=== PATIENT | male | born 1975 | race Caucasian/White ===

== ENCOUNTER 2016-09-29 17:41 | Emergency (ER) | payer BC ==
[~2016-09-29] VITALS: Ht 177.8 cm; Wt 68.0 kg
[2016-09-29] MEDS ORDERED: PROSCAR5 MG ORAL (17:48)
[2016-09-29 17:54] VITALS: BP 117/72
--- NOTE | 2016-09-29 18:06 | Emergency Room Report ---
History of Present Illness General Chief Complaint: Abdominal Pain Source: Patient Present Illness HPI 41-year-old male presents emergency department complaining of vomiting and diarrhea since yesterday afternoon. Patient reports intermittent fevers at home denies blood in the vomit or stool denies recent travel or ill contacts with similar symptoms. Patient reports intermittent cramping abdominal pain just prior to episodes of vomiting or diarrhea which is completely relieved afterward. Patient denies past medical history denies taking medications other than finasteride for hair loss. The patient denies abdominal tenderness. He should estimates approximately 7 episodes of vomiting and approximately 30 episodes of loose stool. Denies recent antibiotic use. Denies CP, Palpitations , LOC, AMS, dizziness, Changes in Vision, Sensation, paresthesias, or a sudden severe headache. Allergies: Coded Allergies: No Known Allergies (Unverified , 09/29/16) Patient History Past Medical History: see triage record Past Surgical History: none Pertinent Family History: none Reviewed Nursing Documentation: PMH: Agreed, PSxH: Agreed Nursing Documentation-PMH Past Medical History: No Stated History Review of Systems All Other Systems: negative except mentioned in HPI Physical Exam Vital Signs Date Time Temp Pulse Resp B/P Pulse Ox O2 Delivery O2 Flow Rate FiO2 09/29/16 17:44 98.6 85 16 117/72 97 Room Air Sp02 EP Interpretation: reviewed, normal General Appearance: no apparent distress, alert, GCS 15, non-toxic Head: normocephalic, atraumatic Eyes: bilateral eye PERRL, bilateral eye normal inspection ENT: hearing grossly normal, normal pharynx, no angioedema, normal voice Neck: full range of motion, supple/symm/no masses Respiratory: lungs clear, normal breath sounds, speaking full sentences Cardiovascular #1: regular rate, rhythm, no edema Gastrointestinal: normal bowel sounds, non tender, soft, no guarding, no rebound, other - Negative [place] signs, Negative MacBurney's sign, Negative Rosvigns Sign, Negative Psoas, No Peritoneal signs. Rectal: deferred Musculoskeletal: back normal, gait/station normal, normal range of motion, non- tender Neurologic: alert, oriented x3, responsive, motor strength/tone normal, sensory intact, speech normal Psychiatric: judgement/insight normal, memory normal, mood/affect normal Skin: normal color, no rash, warm/dry, well hydrated Medical Decision Making PA Attestation Dr. byrne is my supervising Physician whom patient management has been discussed with. Diagnostic Impression: Primary Impression: Gastroenteritis ER Course 41-year-old male presents emergency department complaining of vomiting and diarrhea since yesterday afternoon. Patient reports intermittent fevers at home denies blood in the vomit or stool denies recent travel or ill contacts with similar symptoms. Patient reports intermittent cramping abdominal pain just prior to episodes of vomiting or diarrhea which is completely relieved afterward. Patient denies past medical history denies taking medications other than finasteride for hair loss. The patient denies abdominal tenderness. He should estimates approximately 7 episodes of vomiting and approximately 30 episodes of loose stool. Denies recent antibiotic use. Denies CP, Palpitations , LOC, AMS, dizziness, Changes in Vision, Sensation, paresthesias, or a sudden severe headache. Ddx considered but are not limited to GE, colitis, acute appendicitis, SBO. Vital signs: pt. is afebrile, H&PE are most consistent with GE, abdomen is soft, non-guarding, non-tender no suspicion of acute abdomen at this time. ORDERS: none required at this time, the diagnosis is clinical ED INTERVENTIONS: -500 NS iv hydration, -4mg IVP zofran for nausea. -20mg Bentyl PO -15mg Toradol IV - Pt able to tolerate oral fluid challenge. DISCHARGE: At this time pt. is stable for d/c to home. Will provide printed patient care instructions, and any necessary prescriptions. Care plan and follow up instructions have been discussed with the patient prior to discharge. Last Vital Signs Date Time Temp Pulse Resp B/P Pulse Ox O2 Delivery O2 Flow Rate FiO2 09/29/16 17:54 98.6 16 117/72 97 Room Air 09/29/16 17:44 85 Disposition: HOME, SELF-CARE Condition: Stable Scripts Dicyclomine Hcl* (BENTYL*) 10 Mg Capsule 10 MG ORAL FOUR TIMES A DAY for 3 Days, #12 CAP Prov: Cassy Vigil P.A. 09/29/16 Ondansetron Odt* (ZOFRAN ODT*) 4 Mg Tab.rapdis 4 MG ORAL Q6H Y for Nausea & Vomiting, #20 TAB Prov: Cassy Vigil P.A. 09/29/16 Patient Instructions: Viral Gastroenteritis, Adult Additional Instructions: Take medications as directed. Follow up with PCP in 3 days Return sooner to ED if new symptoms occur, or current symptoms become worse. - Please note that this Emergency Department Report was dictated using [employer]data processing clerk technology software, occasionally this can lead to erroneous entry secondary to interpretation by the dictation equipment. Cassy Vigil Sep 29, 2016 18:06
[2016-09-29] MEDS ORDERED: Ketorolac 30mg Inj IV ONE (18:15)
[2016-09-29] MEDS ORDERED: Dicyclomine 10mg Cap ORAL ONE (18:15)
[2016-09-29] MEDS ORDERED: BENTYL10 MG ORAL (19:00)
[2016-09-29] MEDS ORDERED: ZOFRAN ODT4 MG ORAL (19:00)
[2016-09-29 19:20] VITALS: BP 104/60
== END 2016-09-29 19:22 | disposition home or self-care (01) ==
LOC: EMR 18:00
DX: K52.9 Noninfective gastroenteritis and colitis, unspecified (principal)
CPT/HCPCS: 96360; 96374; 96375; 99284; J1885; J2405; J7040

== ENCOUNTER 2016-11-06 04:31 | Emergency (ER) | payer BC ==
[~2016-11-06] VITALS: Ht 177.8 cm; Wt 68.0 kg
[~2016-11-06 04:31] MED LIST: BENTYL10 MG ORAL; PROSCAR5 MG ORAL; ZOFRAN ODT4 MG ORAL
[2016-11-06 04:40] VITALS: BP 148/79
[2016-11-06] MEDS ORDERED: HYDROmorphone 1mg/ml Carpuject IM ONE (05:00)
[2016-11-06] MEDS ORDERED: HYDROCODON-ACE1 EA15 ORAL (05:17)
[2016-11-06] MEDS ORDERED: DIAZEPAM5 MG ORAL (05:17)
--- NOTE | 2016-11-06 05:17 | Emergency Room Report ---
History of Present Illness General Chief Complaint: Lower Back Pain or Injury Source: Patient Present Illness HPI Is a 41-year-old male with back pain before. He presents with chief complaint of lower back pain. Said his back locking up on him. Onset last night. Pain is severe. Worse with movement. Pain radiates down the left side. No incontinence of bowel or urine. No fever. No trauma. No anesthesia. Similar symptom in the past. Ahrj-yqo-ediblsg medication not helping. He had MRI done within the last year. Allergies: Coded Allergies: No Known Allergies (Unverified , 09/29/16) Patient History Past Medical History: see triage record, old chart reviewed Past Surgical History: other Pertinent Family History: none Social History: Denies: smoking Immunizations: other Reviewed Nursing Documentation: PMH: Agreed, PSxH: Agreed Review of Systems Eye: Denies: blurred vision, eye pain ENT: Denies: ear pain, nose congestion, throat swelling Respiratory: Denies: cough, shortness of breath Cardiovascular: Denies: chest pain, palpitations Gastrointestinal: Denies: abdominal pain, diarrhea, nausea, vomiting Musculoskeletal: Reports: back pain, Denies: joint pain Skin: Denies: rash Neurological: Denies: headache, numbness Endocrine: Denies: increased thirst, increased urine Hematologic/Lymphatic: Denies: easy bruising All Other Systems: negative except mentioned in HPI Physical Exam Vital Signs Date Time Temp Pulse Resp B/P Pulse Ox O2 Delivery O2 Flow Rate FiO2 11/06/16 04:38 98.1 73 18 148/79 98 Room Air vitals unremarkable Sp02 EP Interpretation: reviewed, normal General Appearance: well appearing, no apparent distress, alert Head: normocephalic, atraumatic Eyes: bilateral eye EOMI, bilateral eye PERRL ENT: hearing grossly normal, normal pharynx Neck: full range of motion, supple, no meningismus Respiratory: chest non-tender, lungs clear, normal breath sounds Cardiovascular #1: regular rate, rhythm, no murmur Gastrointestinal: normal bowel sounds, non tender, no mass, no organomegaly, no bruit, non-distended Musculoskeletal: other - Back with stiffness and tenderness mostly on the left lower paraspinous area. No step-off. No anesthesia. Psychiatric: mood/affect normal Skin: warm/dry Medical Decision Making Diagnostic Impression: Primary Impression: Low back pain Qualified Codes: M54.42 - Lumbago with sciatica, left side ER Course Patient presents with back pain. no evidence of cauda equina syndrome, spinal epidural abscess or neoplastic process. We'll discharge home. Last Vital Signs Date Time Temp Pulse Resp B/P Pulse Ox O2 Delivery O2 Flow Rate FiO2 11/06/16 04:40 98.0 72 18 148/79 98 Room Air Status: improved Disposition: HOME, SELF-CARE Condition: Stable Scripts Hydrocodone/Acetaminophen 5-325* (HYDROCODONE/ACETAMINOPHEN 5-325*) 1 Each Tablet 1 TAB ORAL Q6H Y for For Pain, #30 TAB 0 Refills Prov: ALYSSA HEARD M.D. 11/06/16 Diazepam* (DIAZEPAM*) 5 Mg Tablet 5 MG ORAL TID Y for For Anxiety, #20 TAB Prov: ALYSSA HEARD M.D. 11/06/16 Referrals: NOT CHOSEN IPA/,REFERRING (PCP) Patient Instructions: Back Pain, Adult Additional Instructions: No heavy lifting. Followup with your Dr. within a week. You may benefit from referral to see a back specialist. Return if symptom worsen. ALYSSA EHARD M.D. Nov 06, 2016 05:17
[2016-11-06 05:25] VITALS: BP 148/79
[2016-11-06] MEDS ORDERED: LORazepam Inj 2mg/ml 1ml IM ONE (05:30)
== END 2016-11-06 05:25 | disposition home or self-care (01) ==
LOC: EMR 04:51
DX: M54.42 Lumbago with sciatica, left side (principal)
CPT/HCPCS: 96372; 99284; J1170

== ENCOUNTER 2018-04-16 09:55 | Emergency (ER) | payer BC ==
[~2018-04-16] VITALS: Ht 177.8 cm; Wt 68.0 kg
[~2018-04-16 09:55] MED LIST changes: +DIAZEPAM5 MG ORAL; +HYDROCODON-ACE1 EA15 ORAL
[2018-04-16 10:05] VITALS: BP 119/60
--- NOTE | 2018-04-16 10:05 | NUR ---
ED Nurse Note: PT WALKED IN TO ER TODAY FROM HOME. AOX4. PT C/O NAUSEA AND ONE EPISODE OF VOMITING X 3 DAYS AGO. PT ALSO C/O ONGOING DIARRHEA X 3 DAYS AGO. LAST BM X THIS AM WHICH PT STATES WAS LIQUID. ACTIVE BOWEL SOUNDS IN ALL QUADRANTS. ABDOMEN DOES NOT APPEAR DISTENDED AND IS NONTENDER TO PALPATION. PT DENIES ANY PAIN AT THIS TIME.
[2018-04-16] MEDS ORDERED: Ketorolac 30mg Inj IV ONE (10:45)
--- NOTE | 2018-04-16 11:24 | Emergency Room Report ---
History of Present Illness General Chief Complaint: Nausea, Vomiting, and Diarrhea Source: Patient Present Illness HPI Patient presents with reports of vomiting and diarrhea Reports that 2 weeks ago he had similar episode [place] that he was getting better from that however earlier today had another episode of diarrhea Patient also feels congested in the nasal area and has a sore throat Denies any chest pain He does have increased nausea He recently returned from [place] about one month ago Denies any rash denies any fevers denies any neck pain or photophobia Allergies: Coded Allergies: No Known Allergies (Unverified , 04/16/18) Patient History Past Medical History: see triage record Pertinent Family History: none Reviewed Nursing Documentation: PMH: Agreed; PSxH: Agreed Nursing Documentation-PMH Past Medical History: No History, Except For Review of Systems All Other Systems: negative except mentioned in HPI Physical Exam Vital Signs Date Time Temp Pulse Resp B/P (MAP) Pulse Ox O2 Delivery O2 Flow Rate FiO2 04/16/18 10:03 99.7 81 16 119/69 98 Room Air Sp02 EP Interpretation: reviewed, normal General Appearance: well appearing, no apparent distress Head: normocephalic, atraumatic Eyes: bilateral eye PERRL, bilateral eye EOMI ENT: hearing grossly normal, TMs + canals normal, uvula midline, pharyngeal erythema Neck: full range of motion, supple, no meningismus, no bony tend Respiratory: lungs clear, normal breath sounds, no rhonchi, no respiratory distress, no retraction, no accessory muscle use Cardiovascular #1: normal peripheral pulses, regular rate, rhythm, no edema, no gallop, no JVD, no murmur Gastrointestinal: normal bowel sounds, non tender, soft, no mass, no organomegaly, non-distended, no guarding, no hernia, no pulsatile mass, no rebound Genitourinary: no CVA tenderness Musculoskeletal: normal inspection Neurologic: oriented x3, responsive, photo optics technician III-XII nml as tested, motor strength/ tone normal, sensory intact Psychiatric: mood/affect normal Skin: normal color, no rash, warm/dry, palpation normal Lymphatic: normal inspection, no adenopathy Medical Decision Making Diagnostic Impression: Primary Impression: Nausea, vomiting, and diarrhea Additional Impression: Pharyngitis ER Course Given the patient's initial complaints of vomiting and diarrhea multiple differentials were entertained He does also not complaining of sore throat Examination revealing erythematous findings No obvious white plaque or pustule Patient's mono differential on CBC is mildly elevated raising question of possible mononucleosis given the erythema however patient is treated with antibiotics Is educated to avoid physical contact and requires close outpatient follow-up Labs Test 04/16/18 10:49 White Blood Count 12.5 K/UL (4.8-10.8) Red Blood Count 4.67 M/UL (4.70-6.10) Hemoglobin 14.2 G/DL (14.2-18.0) Hematocrit 42.0 % (42.0-52.0) Mean Corpuscular Volume 90 FL (80-99) Mean Corpuscular Hemoglobin 30.5 PG (27.0-31.0) Mean Corpuscular Hemoglobin Concent 33.9 G/DL (32.0-36.0) Red Cell Distribution Width 11.6 % (11.6-14.8) Platelet Count 228 K/UL (150-450) Mean Platelet Volume 6.4 FL (6.5-10.1) Neutrophils (%) (Auto) 79.8 % (45.0-75.0) Lymphocytes (%) (Auto) 6.7 % (20.0-45.0) Monocytes (%) (Auto) 12.6 % (1.0-10.0) Eosinophils (%) (Auto) 0.2 % (0.0-3.0) Basophils (%) (Auto) 0.7 % (0.0-2.0) Sodium Level 133 MMOL/L (136-145) Potassium Level 4.0 MMOL/L (3.5-5.1) Chloride Level 94 MMOL/L (98-107) Carbon Dioxide Level 29 MMOL/L (21-32) Anion Gap 10 mmol/L (5-15) Blood Urea Nitrogen 7 mg/dL (7-18) Creatinine 1.1 MG/DL (0.55-1.30) Estimat Glomerular Filtration Rate > 60 mL/min (>60) Glucose Level 111 MG/DL (74-106) Calcium Level 9.3 MG/DL (8.5-10.1) Total Bilirubin 1.2 MG/DL (0.2-1.0) Direct Bilirubin 0.3 MG/DL (0.0-0.3) Aspartate Amino Transf (AST/SGOT) 15 U/L (15-37) Alanine Aminotransferase (ALT/SGPT) 27 U/L (12-78) Alkaline Phosphatase 77 U/L (46-116) Total Protein 7.6 G/DL (6.4-8.2) Albumin 3.3 G/DL (3.4-5.0) Globulin 4.3 g/dL Albumin/Globulin Ratio 0.8 (1.0-2.7) Lipase 144 U/L (73-393) Last Vital Signs Date Time Temp Pulse Resp B/P (MAP) Pulse Ox O2 Delivery O2 Flow Rate FiO2 04/16/18 10:05 100.8 70 13 119/60 100 Room Air Status: improved Disposition: HOME, SELF-CARE Condition: Improved Scripts Ibuprofen* (MOTRIN*) 600 Mg Tablet 600 MG ORAL Q8H PRN for For Pain, #20 TAB 0 Refills Prov: Haley Lamb DO 04/16/18 Amoxicillin/Potassium Clav 875-125* (AUGMENTIN 875-125 TABLET*) 1 Each Tablet 1 TAB ORAL TWICE A DAY, #14 TAB Prov: Haley Lamb DO 04/16/18 Referrals: NON PHYSICIAN (PCP) Additional Instructions: Patient is provided with the discharge instructions notified to follow up with primary doctor in the next 2-3 days otherwise return to the er with any worsening symptoms. Please note that this report is being documented using [employer] technology. This can lead to erroneous entry secondary to incorrect interpretation by the dictating instrument. Haley Lamb DO Apr 16, 2018 11:24
[2018-04-16 11:26] LABS: BASOPHILS % (AUTO) 0.7 % (0.0-2.0); EOSINOPHILS % (AUTO) 0.2 % (0.0-3.0); HEMOGLOBIN 14.2 G/DL (14.2-18.0); LYMPHOCYTES % (AUTO) 6.7 % (20.0-45.0); MEAN CORPUSCULAR VOLUME 90 FL (80-99); MONOCYTES % (AUTO) 12.6 % (1.0-10.0); NEUTROPHILS % (AUTO) 79.8 % (45.0-75.0); PLATELET COUNT 228 K/UL (150-450); RED BLOOD COUNT 4.67 M/UL (4.70-6.10); RED CELL DISTRIBUTION WIDTH 11.6 % (11.6-14.8); WHITE BLOOD COUNT 12.5 K/UL (4.8-10.8)
[2018-04-16 11:38] LABS: ANION GAP 10 mmol/L (5-15); BLOOD UREA NITROGEN 7 mg/dL (7-18); CALCIUM 9.3 MG/DL (8.5-10.1); CARBON DIOXIDE 29 MMOL/L (21-32); CHLORIDE 94 MMOL/L (98-107); CREATININE 1.1 MG/DL (0.55-1.30); SODIUM 133 MMOL/L (136-145)
[2018-04-16 11:48] LABS: ALANINE AMINOTRANSFERASE 27 U/L (12-78); ALBUMIN 3.3 G/DL (3.4-5.0); ALBUMIN/GLOBULIN RATIO 0.8 (1.0-2.7); ALKALINE PHOSPHATASE 77 U/L (46-116); ASPARTATE AMINO TRANSFERASE 15 U/L (15-37); BILIRUBIN,TOTAL 1.2 MG/DL (0.2-1.0)
[2018-04-16 11:51] LABS: BILIRUBIN,DIRECT 0.3 MG/DL (0.0-0.3)
[2018-04-16 12:00] VITALS: BP 107/50
[2018-04-16] MEDS ORDERED: Augmentin 875mg Tab ORAL ONE (13:15)
[2018-04-16] MEDS ORDERED: Dexamethasone 4mg/ml vial IVP ONE (13:15)
[2018-04-16] MEDS ORDERED: IBUPROFEN600 MG ORAL (13:33)
[2018-04-16] MEDS ORDERED: AUGMENTIN 875-1 EAC1 ORAL (13:33)
[2018-04-16 13:43] VITALS: BP 115/62
--- NOTE | 2018-04-16 13:47 | NUR ---
ED Nurse Note: PT LAYING PEACEFULLY IN BED IN NAD. AOX4. PRESCRIPTIONS AND DISCHARGE PAPERWORK EXPLAINED TO PT. PT VERBALIZES UNDERSTANDING AND DENIES ANY QUESTIONS AT THIS TIME. PRESCRIPTIONS AND DISCHARGE PAPERWORK GIVEN TO PT, IV AND ID WRISTBAND REMOVED. PT WALKED OUT OF ER WITH STEADY GAIT AND ALL BELONGINGS.
== END 2018-04-16 13:47 | disposition home or self-care (01) ==
LOC: EMR 10:04
DX: R11.2 Nausea with vomiting, unspecified (principal); R19.7 Diarrhea, unspecified; J02.9 Acute pharyngitis, unspecified
CPT/HCPCS: 36415; 80053; 82248; 83690; 85025; 96361; 96374; 96375; 99284; J1100; J1885; J2405